=== PATIENT | male | born 1960 | race Caucasian/White ===

== ENCOUNTER 2018-09-04 16:53 | Inpatient (IN) | payer BC ==
[~2018-09-04] VITALS: Ht 185.4 cm; Wt 113.4 kg
[2018-09-04] MEDS ORDERED: cloNIDine HCL 0.1 MG TAB PO ONE (17:15)
[2018-09-04 17:55] LABS: Basophils # (auto) 0 uL; Basophils % (auto) 0.3 % (0.0-2.0); Eosinophils # (auto) 0.1 uL; Eosinophils % (auto) 1.4 % (0.0-7.0); Hematocrit 46.5 % (41.0-53.0); Hemoglobin 15.6 g/dL (13.5-17.5); Lymphocytes # (auto) 1.8 uL; Lymphocytes % (auto) 19.4 % (10.0-50.0); Mean Corpuscular Hgb Conc. 33.6 g/dL (32.0-36.0); Mean Corpuscular Volume 92.5 fL (80.0-100.0); Monocytes # (auto) 0.5 uL; Monocytes % (auto) 5.8 % (0.0-12.0); Neutrophils # (auto) 6.7 uL; Neutrophils % (auto) 73.1 % (37.0-80.0); Nucleated Red Blood Cells % 0.1 %; Platelet Count (auto) 198 10^3/uL (140-450); Red Blood Cells 5.02 10^6/uL (4.5-5.90); Red Cell Distribution Width 15.1 % (11.8-14.3); White Blood Cell 9.2 10^3/uL (4.4-10.8)
[2018-09-04 18:07] LABS: Alanine Aminotransferase 38 U/L (16-61); Albumin 3.8 g/dL (3.4-5.0); Anion Gap 10 (5-15); Aspartate Aminotransferase 23 U/L (15-37); BUN/Creatinine Ratio 23.5; Blood Urea Nitrogen 20 mg/dL (7-18); Calcium 8.8 mg/dL (8.5-10.1); Carbon Dioxide 22 mmol/L (21-32); Chloride 113 mmol/L (98-107); GFR African American 120 mL/min; GFR Non-African American 99 mL/min; Glucose 88 mg/dL (74-106); Magnesium 2.2 mg/dL (1.6-2.6); Potassium 3.8 mmol/L (3.5-5.1); Sodium 145 mmol/L (136-145)
[2018-09-04 18:12] LABS: Alkaline Phosphatase 118 U/L (45-117); Bilirubin, Total 0.7 mg/dL (0.2-1.0); Total Protein 7.3 g/dL (6.4-8.2)
[2018-09-04 20:24] LABS: Urine Bacteria NONE SEEN /hpf (None Seen); Urine Blood Negative /uL (Negative); Urine Specific Gravity 1.019 (1.001-1.035); Urine WBC 1 /hpf (0 - 3)
[2018-09-04] MEDS ORDERED: NITROGLYCERIN 0.4 MG SL TAB SL PRN (21:15)
[2018-09-04] MEDS ORDERED: ONDANSETRON HCL 4 MG/2 ML VIAL IV PRN (21:15)
[2018-09-04] MEDS ORDERED: MORPHINE SULF INJ 2 MG/ML SYRINGE 1ML IV PRN (21:15)
[2018-09-04] MEDS ORDERED: TEMAZEPAM 15 MG CAP PO PRN (21:15)
[2018-09-04] MEDS ORDERED: LABETALOL HCL 5 MG/ML ML 20ML VIAL IV ONE (21:30)
[2018-09-04] MEDS ORDERED: ATORVASTATIN 20 MG TAB PO SCH (22:00)
[2018-09-04] MEDS: FAMOTIDINE 20 MG TAB PO SCH (22:09)
--- NOTE | 2018-09-04 22:15 | NUR ---
Telemetry admit from ER SONIDO JOHNSON admitted to Telemetry unit after SBAR received. Patient oriented to Graciela Forbes RN primary RN, unit, room, bed, and unit policies regarding patient care and visiting hours. Patient placed on bedside oxygen 2l nc, weighed by bedscale and encouraged to call if they need something. All questions and concerns addressed, patient verbalized understanding. Family at bedside Note:
[2018-09-04 22:21] VITALS: BP 162/102
[2018-09-04 22:36] LABS: Cholesterol 116 mg/dL (< 200); Triglycerides 102 mg/dL (< 150)
[2018-09-04 22:38] LABS: HDL Cholesterol 38 mg/dL (40-59); LDL Cholesterol 71 mg/dL (< 100)
[2018-09-04] MEDS: cloNIDine HCL 0.1 MG TAB PO PRN (22:48)
[2018-09-04 22:53] VITALS: BP 162/102
--- NOTE | 2018-09-04 23:00 | NUR ---
BP recheck BP decreased to 138/82, call light within reach
[2018-09-04] MEDS: ACETAMINOPHEN 325 MG TAB PO PRN (23:05)
--- NOTE | 2018-09-04 23:05 | NUR ---
Rounds Patient awake and alert x4. No S/S of distress/SOB on 2L NC, c/o headache medicated for pain. Will continue to monitor changes q1hr and PRN.
[2018-09-04 23:53] VITALS: BP 138/82
[2018-09-05] MEDS ORDERED: NEBI5TAB2 PO (02:48)
[2018-09-05] MEDS ORDERED: ASPI1TAB19 PO (02:48)
[2018-09-05] MEDS ORDERED: ATOR20TA PO (02:48)
[2018-09-05] MEDS ORDERED: LISI40TA PO (02:48)
[2018-09-05 04:58] VITALS: BP 155/81
[2018-09-05 06:04] LABS: Basophils # (auto) 0.1 uL; Eosinophils # (auto) 0.1 uL; Eosinophils % (auto) 2.1 % (0.0-7.0); Hematocrit 42.8 % (41.0-53.0); Hemoglobin 14.7 g/dL (13.5-17.5); Lymphocytes # (auto) 1.5 uL; Lymphocytes % (auto) 23.1 % (10.0-50.0); Mean Corpuscular Hemoglobin 31.6 pg (28.0-32.0); Mean Corpuscular Hgb Conc. 34.3 g/dL (32.0-36.0); Mean Corpuscular Volume 92.2 fL (80.0-100.0); Monocytes # (auto) 0.5 uL; Monocytes % (auto) 7.2 % (0.0-12.0); Neutrophils # (auto) 4.4 uL; Neutrophils % (auto) 66.6 % (37.0-80.0); Platelet Count (auto) 156 10^3/uL (140-450); Red Blood Cells 4.64 10^6/uL (4.5-5.90); Red Cell Distribution Width 15.2 % (11.8-14.3); White Blood Cell 6.7 10^3/uL (4.4-10.8)
[2018-09-05 06:20] LABS: BUN/Creatinine Ratio 22.5; Calcium 8.6 mg/dL (8.5-10.1); Potassium 3.4 mmol/L (3.5-5.1)
--- NOTE | 2018-09-05 06:44 | NUR ---
Elevated bp Pt bp elevated 162/102, medicated for elevated bp greater than 160, will continue to monitor Addendum: 09/05/18 at 0646 by Graciela Forbes RN RN Disregard time correct time [id number]
--- NOTE | 2018-09-05 06:50 | NUR ---
Rounds Patient awake and alert X4. 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 Will continue to monitor
--- NOTE | 2018-09-05 07:00 | NUR ---
Called/paged Hospitalist Niko called re: request for blood thinner for afib/flutter controlled rate 65 and notify of elevated bp. Order received to give morning blood pressure medication at this time, continue to monitor. Continue care.
--- NOTE | 2018-09-05 07:06 | NUR ---
BP Medicated patient as ordered with 1000 blood pressure medications given early as ordered, will endorse bp monitoring to incoming nurse Celi. Patient alert x [address], no distress, no c/o pain. Instructed to call for any sob or chest pain, call light within reach, bed in lowest locked position
--- NOTE | 2018-09-05 07:25 | NUR ---
Endorsed care to Celi YODER
--- NOTE | 2018-09-05 07:30 | NUR ---
Opening Shift Note Assumed care of patient, awake, alert, and oriented x4. No S/S of distress/SOB, but patient is reporting a headache of 3/10. IV is in left hand 18 gauge asymptomatic, intact, patent, and saline locked. Bed is locked and in lowest position and call light is within reach. Instructed on POC and to call for assist PRN, and patient verbalized understanding. Will continue to monitor for changes Q1hr and PRN.
[2018-09-05 08:00] VITALS: BP 167/108
[2018-09-05 09:07] VITALS: BP 167/108
[2018-09-05] MEDS ORDERED: amLODIPine BESYLATE 5 MG TAB PO SCH (10:00)
[2018-09-05] MEDS ORDERED: LISINOPRIL 20 MG TAB PO SCH (10:00)
[2018-09-05] MEDS: FAMOTIDINE 20 MG TAB PO SCH (12:48)
[2018-09-05] MEDS: cloNIDine HCL 0.1 MG TAB PO PRN (12:49)
[2018-09-05 13:00] VITALS: BP 149/106
[2018-09-05] MEDS: ACETAMINOPHEN 325 MG TAB PO PRN (15:47)
[2018-09-05] MEDS ORDERED: POTASSIUM CHL 20 Meq TABLET PO SCH (16:56)
[2018-09-05 17:00] VITALS: BP 154/108
[2018-09-05] MEDS ORDERED: CARVEDILOL 3.125 MG TAB PO SCH (17:00)
--- NOTE | 2018-09-05 17:00 | NUR ---
Dr. Leo MD, at bedside. New orders received.
[2018-09-05] MEDS ORDERED: AML5T PO (17:13)
[2018-09-05 17:28] VITALS: BP 152/87
--- NOTE | 2018-09-05 18:26 | NUR ---
Discharge instructions given as ordered. Encourage to follow up with PMD as instructed. All questions and concerns addressed. Patient verbalized understanding. Medication reconciliation form completed and copy given to patient. IV removed with catheter intact, pressure dressing applied. Telemetry unit returned to [facility]. Patient walked to vehicle with all personal belongings, accompanied by family member. No distress noted at time of departure.
== END 2018-09-05 18:00 | disposition home or self-care (01) | DRG 305 ==
LOC: ER 16:58 → TELE 16:59 → TELE-WESTW 22:21
PROVIDERS: ADMIT Nurse Practitioner; ATTEND Nurse Practitioner
DX: I11.9 Hypertensive heart disease without heart failure (principal); I43 Cardiomyopathy in diseases classified elsewhere; E11.9 Type 2 diabetes mellitus without complications; E66.9 Obesity, unspecified; E78.5 Hyperlipidemia, unspecified; I48.91 Unspecified atrial fibrillation; Z95.1 Presence of aortocoronary bypass graft; I25.2 Old myocardial infarction; Z68.33 Body mass index [BMI] 33.0-33.9, adult; Z88.8 Allergy status to other drugs, medicaments and biological substances; Z91.14 Patient's other noncompliance with medication regimen
CPT/HCPCS: 36415; 71046; 80048; 80053; 80061; 81001; 83735; 83880; 84484; 85025; 93005; 93306; 93886; 96374; 99291; G0378